=== PATIENT | male | born 1980 | race Caucasian/White ===

== ENCOUNTER 2017-10-17 13:04 | Emergency (ER) | payer MEDICAID, OTHER ==
[2017-10-17] MEDS ORDERED: NS 1,000 ML IV ONE ×2 (13:23→14:38)
--- NOTE | 2017-10-17 13:47 | EDPHY ---
H & P Stated Complaint: Fatigue and "feeling dehydrated" x 1 week. 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 He recently completed a 28 day stent of working 12 hr shifts. It has been extremely hot and although he tries to keep up with his water intake he feels that he has not done so. He has a few days off right now but has to return to work day after tomorrow. He has had difficulty sleeping although he feels quite fatigued. He suspects that he is dehydrated and tells me that in the past he felt similarly and was treated successfully with IV fluids. He is requesting IV fluids today. He takes Benadryl regularly for treatment of hives related to seasonal allergies. He denies any recent nausea or vomiting, alcohol intake, abdominal pain, or blood in his stool. No difficulty urinating. Occasional diarrhea. He has had elevated blood pressure readings in the past but has not taken medication for hypertension. REVIEW OF SYSTEMS: A ten point review of systems was performed and is negative with the exception of the items mentioned in the HPI. Past medical history: Hypertension, thrombocytopenia noted when blood is drawn , seasonal allergies Past surgical history: Surgery on both of his index fingers for traumatic injury Social history: He works on an oil rig. He does not use alcohol or illicit drugs. He smokes 1 pack of cigarettes daily. General Appearance: Alert. Vital signs reviewed. Initial blood pressure 159/ 88. Eyes: Pupils equal and round, no conjunctival injection, no discharge. Anicteric. ENT, Mouth: Mucous membranes are moist, no oropharyngeal erythema or edema. Neck: No lymphadenopathy, supple. Respiratory: Lungs are clear to auscultation; no wheezes, rales, or rhonchi. Cardiovascular: Regular rate and rhythm; no murmur, rub, or gallop. Gastrointestinal: Abdomen is soft and nontender, no masses or organomegaly, bowel sounds normal. Skin: Warm and dry, no rashes on exposed skin, normal color. Back: Nontender to palpation over the thoracolumbar spine. No CVAT. Extremities: No lower extremity edema, no calf tenderness or swelling. Neurological: Alert and oriented. Moving all four extremities easily and equally. Psychiatric: Normal affect. - Personal History Current Tetanus Diphtheria and Acellular Pertussis (TDAP): Yes Tetanus Vaccine Date: within 10 years - Medical/Surgical History Hx Asthma: No Hx Chronic Respiratory Disease: No Hx Diabetes: No Hx Cardiac Disease: No Hx Renal Disease: No Hx Cirrhosis: No Hx Alcoholism: No Hx HIV/AIDS: No Hx Splenectomy or Spleen Trauma: No Other PMH: ADD, partial finger amputation. kidney issues, HTN no meds - Social History Smoking Status: Current every day smoker Constitutional: Initial Vital Signs Temperature (C) 36.8 C 10/17/17 13:09 Heart Rate 98 10/17/17 13:09 Respiratory Rate 18 10/17/17 13:09 Blood Pressure 159/88 H 10/17/17 13:09 O2 Sat (%) 94 10/17/17 13:09 O2 Delivery Mode Room Air Allergies/Adverse Reactions: No Known Allergies Allergy (Verified 10/17/17 13:09) Home Medications: Medication Instructions Recorded NK [No Known Home Meds] 10/17/17 Medical Decision Making Differential Diagnosis: MDM: 37-year-old male with possible mild dehydration who is requesting IV hydration. He was treated successfully this way in the past and feels that it will benefit him. He is concerned because he has to return to work in a day and half--he was expecting to have more time off and does not feel that he has sufficiently recovered from his recent 28 day stint. He does not feel that he can adequately orally rehydrate. He was given 2 L of IV normal saline in the emergency department. Electrolytes were reviewed. - Data Points Laboratory Results: 10/17/17 13:44 POC Sodium 140 mEq/L mEq/L (135-145) POC Potassium 3.5 mEq/L mEq/L (3.3-5.0) POC Chloride 104.0 mEq/L mEq/L (97-110) POC Total CO2 26 mEq/L mEq/L (22-31) POC BUN 8 mg/dL mg/dL (7-23) POC Creatinine 1.3 mg/dL mg/dL (0.7-1.3) POC Glucose 125 mg/dL H mg/dL (70-100) POC Calcium 9.0 mg/dL mg/dL (8.5-10.4) Medications Given: Discontinued Medications Sodium Chloride (Ns) 1,000 mls @ 0 mls/hr IV ONCE ONE PRN Reason: Wide Open Stop: 10/17/17 13:24 Last Admin: 10/17/17 13:24 Dose: 1,000 mls Point of Care Test Results: Chemistry 10/17/17 13:44 POC Sodium 140 mEq/L mEq/L (135-145) POC Potassium 3.5 mEq/L mEq/L (3.3-5.0) POC Chloride 104.0 mEq/L mEq/L (97-110) POC Total CO2 26 mEq/L mEq/L (22-31) POC BUN 8 mg/dL mg/dL (7-23) POC Creatinine 1.3 mg/dL mg/dL (0.7-1.3) POC Glucose 125 mg/dL H mg/dL (70-100) POC Calcium 9.0 mg/dL mg/dL (8.5-10.4) Departure - Departure Disposition: Home, Routine, Self-Care Clinical Impression: Dehydration Hypertension Qualifiers: Hypertension type: essential hypertension Qualified Code(s): I10 - Essential ( primary) hypertension Condition: Good Instructions: Dehydration (ED), Hypertension (ED) Additional Instructions: Continue orally rehydrating with water and Gatorade. You might try Flonase for your seasonal allergies. You can buy this over-the- counter. I also recommend Sarna lotion for itching related hives. You can buy this [id number] too. Please do not exceed the recommended daily dose of Benadryl. Please her blood pressure followed up by your primary care physician. Your initial blood pressure was 159/88. Referrals: SERGIO AUGUSTIN PA-C [Other] - As per Instructions
[2017-10-17] MEDS ORDERED: diphenhydrAMINE 25 MG CAP PO ONE (14:38)
[2017-10-17 15:34] VITALS: BP 120/84
== END 2017-10-17 15:30 | disposition home or self-care (01) ==
LOC: CED 13:04
DX: E86.0 Dehydration (principal); I10 Essential (primary) hypertension; F17.200 Nicotine dependence, unspecified, uncomplicated
CPT/HCPCS: 80048-PO